=== PATIENT | male | born 1955 | race Caucasian/White ===

== ENCOUNTER 2022-01-06 15:58 | Emergency (ER) | payer MEDICARE, SELFPAY ==
[2022-01-06 16:04] VITALS: BP 156/93; PULSE 107; RESP 16; TEMP 36.9; O2SAT 94; BMI 30.2
== END 2022-01-06 16:36 | disposition left against medical advice (07) ==
PROVIDERS: Emergency Provider Emergency Medicine
CPT/HCPCS: 99281